=== PATIENT | male | born 1945 | race Asian ===

== ENCOUNTER 2018-02-05 06:08 | Day surgery (SDC) | payer MEDICARE, OTHER ==
[~2018-02-05] VITALS: Ht 172.7 cm; Wt 84.0 kg
[~2018-02-05 06:08] MED LIST: ACET-784 PO; AMLO1CAP2 PO; ASPI-1182 PO; ATOR40TA28 PO; CALC-1038 PO; FINA5TAB41 PO; HYDR25TA PO; METO-558 PO; OMEP20 PO
[2018-02-05] MEDS ORDERED: MIDAZOLAM HCL 2 MG/2 ML VIAL IVP ONE (06:09)
[2018-02-05] MEDS ORDERED: FentaNYL CITRATE-PF 100 MCG/2 ML VIAL IVP ONE (06:09)
[2018-02-05] MEDS ORDERED: RINGERS SOLUTION,LACTATED 500 ML IV ONE (06:23)
[2018-02-05] MEDS ORDERED: FLURBIPROFEN SODIUM 0.03% 2.5 ML OPHTHALMIC SOLUTION ONE (06:24)
[2018-02-05] MEDS ORDERED: OFLOXACIN 0.3% 5 ML OPHTHALMIC SOLUTION ONE ×2 (06:24→06:31)
[2018-02-05] MEDS ORDERED: TROPICAMIDE 1% 2 ML OPHTHALMIC SOLUTION ONE (06:24)
[2018-02-05] MEDS ORDERED: PHENYLEPHRINE HCL 2.5% 2 ML OPHTHALMIC SOLUTION ONE (06:24)
[2018-02-05] MEDS ORDERED: TETRACAINE HCL/PF 0.5% 4 ML OPHTHALMIC SOLUTION ONE (06:24)
[2018-02-05] MEDS ORDERED: CYCLOPENTOLATE HCL 1% 2 ML OPHTHALMIC SOLUTION ONE (06:25)
[2018-02-05] MEDS ORDERED: SODIUM CHLORIDE 0.9% 500 ML IV ONE ×2 (06:52→07:00)
[2018-02-05] MEDS ORDERED: TETRACAINE HCL/PF 0.5% 4 ML OPHTHALMIC SOLUTION OS ONE (07:00)
[2018-02-05] MEDS: OFLOXACIN 0.3% 5 ML OPHTHALMIC SOLUTION OS SCH ×3 (07:01→07:14)
[2018-02-05] MEDS: PHENYLEPHRINE HCL 2.5% 2 ML OPHTHALMIC SOLUTION OS SCH ×3 (07:02→07:15)
[2018-02-05] MEDS: TROPICAMIDE 1% 2 ML OPHTHALMIC SOLUTION OS SCH ×3 (07:02→07:14)
[2018-02-05] MEDS: CYCLOPENTOLATE HCL 1% 2 ML OPHTHALMIC SOLUTION OS SCH ×3 (07:02→07:14)
[2018-02-05] MEDS: FLURBIPROFEN SODIUM 0.03% 2.5 ML OPHTHALMIC SOLUTION OS SCH ×3 (07:02→07:15)
== END 2018-02-05 09:40 | disposition home or self-care (01) ==
LOC: SURGERY 06:08
PROVIDERS: ATTEND Ophthalmology
DX: H25.12 Age-related nuclear cataract, left eye (principal); M10.9 Gout, unspecified; E78.00 Pure hypercholesterolemia, unspecified; I25.2 Old myocardial infarction; I11.9 Hypertensive heart disease without heart failure; Z90.5 Acquired absence of kidney; Z90.49 Acquired absence of other specified parts of digestive tract; Z86.74 Personal history of sudden cardiac arrest; Z85.528 Personal history of other malignant neoplasm of kidney; Z79.891 Long term (current) use of opiate analgesic; Z79.82 Long term (current) use of aspirin; Z98.890 Other specified postprocedural states; Z79.899 Other long term (current) drug therapy
CPT/HCPCS: 66984; 93005; C1780; J2250; J3010; J7040; J7120

== ENCOUNTER 2018-03-12 06:11 | Day surgery (SDC) | payer MEDICARE, OTHER ==
[~2018-03-12] VITALS: Ht 172.7 cm; Wt 87.0 kg
[~2018-03-12 06:11] MED LIST changes: +RINGERS SOLUTION,LACTATED 500 ML IV ONE
[2018-03-12] MEDS ORDERED: RINGERS SOLUTION,LACTATED 500 ML IV ONE (06:17)
[2018-03-12] MEDS ORDERED: PHENYLEPHRINE HCL 2.5% 2 ML OPHTHALMIC SOLUTION ONE (06:18)
[2018-03-12] MEDS ORDERED: OFLOXACIN 0.3% 5 ML OPHTHALMIC SOLUTION ONE (06:18)
[2018-03-12] MEDS ORDERED: FLURBIPROFEN SODIUM 0.03% 2.5 ML OPHTHALMIC SOLUTION ONE (06:18)
[2018-03-12] MEDS ORDERED: TROPICAMIDE 1% 2 ML OPHTHALMIC SOLUTION ONE (06:18)
[2018-03-12] MEDS ORDERED: TETRACAINE HCL/PF 0.5% 4 ML OPHTHALMIC SOLUTION ONE (06:18)
[2018-03-12] MEDS ORDERED: CYCLOPENTOLATE HCL 1% 2 ML OPHTHALMIC SOLUTION ONE (06:19)
[2018-03-12] MEDS: FLURBIPROFEN SODIUM 0.03% 2.5 ML OPHTHALMIC SOLUTION OD SCH ×3 (06:56→07:10)
[2018-03-12] MEDS: CYCLOPENTOLATE HCL 1% 2 ML OPHTHALMIC SOLUTION OD SCH ×3 (06:56→07:10)
[2018-03-12] MEDS: TROPICAMIDE 1% 2 ML OPHTHALMIC SOLUTION OD SCH ×3 (06:56→07:11)
[2018-03-12] MEDS: PHENYLEPHRINE HCL 2.5% 2 ML OPHTHALMIC SOLUTION OD SCH ×3 (06:56→07:11)
[2018-03-12] MEDS: OFLOXACIN 0.3% 5 ML OPHTHALMIC SOLUTION OD SCH ×3 (06:57→07:10)
[2018-03-12] MEDS ORDERED: TETRACAINE HCL/PF 0.5% 4 ML OPHTHALMIC SOLUTION OD ONE (07:00)
[2018-03-12] MEDS ORDERED: MIDAZOLAM HCL 2 MG/2 ML VIAL IVP ONE (12:00)
[2018-03-12] MEDS ORDERED: FentaNYL CITRATE-PF 100 MCG/2 ML VIAL IVP ONE (12:00)
== END 2018-03-12 08:35 | disposition home or self-care (01) ==
LOC: SURGERY 06:11
PROVIDERS: ATTEND Ophthalmology
DX: H25.11 Age-related nuclear cataract, right eye (principal); E78.00 Pure hypercholesterolemia, unspecified; I11.9 Hypertensive heart disease without heart failure; J32.9 Chronic sinusitis, unspecified; I25.2 Old myocardial infarction; M10.9 Gout, unspecified; Z90.49 Acquired absence of other specified parts of digestive tract; Z90.5 Acquired absence of kidney; Z98.42 Cataract extraction status, left eye; Z85.528 Personal history of other malignant neoplasm of kidney; Z79.891 Long term (current) use of opiate analgesic; Z95.5 Presence of coronary angioplasty implant and graft; Z79.82 Long term (current) use of aspirin; Z79.899 Other long term (current) drug therapy; Z98.890 Other specified postprocedural states
CPT/HCPCS: 66984; 93005; C1780; J2250; J3010; J7120